=== PATIENT | male | born 1970 | race Caucasian/White ===

== ENCOUNTER 2017-05-18 17:32 | Emergency (ER) | payer OTHER ==
[2017-05-18 17:41] VITALS: BP 164/90; PULSE 96; BMI 27.3
--- NOTE | 2017-05-18 19:45 | PDOC ---
History of Present Illness - General Chief Complaint: Psychiatric Stated Complaint: CHEST PAIN Time Seen by Provider: 05/18/17 19:37 - History of Present Illness Initial Comments: 05/18/17 20:05 The patient is a 47 year old male with no significant PMH who presents for evaluation of anxiety. The patient reports anxious feelings over the past month and the sensation that he "gets in his own head." Today he states he experienced an episode of extreme anxiety and presented to an urgent care where he was evaluated and then discharged after calming down. He states that he then experienced another episode of extreme anxiety with a sensation of numbness and tingling in his extremities prompting his presentation to the ED for evaluation. He states that his symptoms have since resolved since presenting to the ED. He otherwise denies fevers, chills, SOB, chest pain, nausea, vomiting, abdominal pain, or changes with urination or bowel movements. Past History - Past Medical History Allergies/Adverse Reactions: Allergies Allergy/AdvReac Type Severity Reaction Status Date / Time No Known Allergies Allergy Verified 05/18/17 17:42 Home Medications: Ambulatory Orders Omeprazole 20 mg PO BID #28 tablet. 01/21/17 Cancer: Yes (Non-hodgkins lymphoma) COPD: No - Surgical History Abdominal Surgery: Yes - Suicide/Smoking/Psychosocial Hx Smoking History: Smoker current status UNK Hx Alcohol Use: Yes (socially) Drug/Substance Use Hx: No Substance Use Type: None Review of Systems - Review of Systems Comments:: 05/18/17 20:17 Constitutional: No fevers, chills, fatigue, malaise HEENT: No Rhinorrhea, nasal congestion, visual changes Cardiovascular: No chest pain, syncope, palpitations, lightheadedness Respiratory: No Cough, SOB, Hemoptysis, Gastrointestinal: No Abdominal pain, Nausea, Vomiting, Constipation, Diarrhea, Melena Genitourinary: No Dysuria, Frequency, Urgency, Hesitancy, Hematuria, Flank pain Musculoskeletal: No Myalgia, arthralgia Skin: No rashes, itching, bruising, pallor Neurologic: No Headache, Dizziness, Weakness Psychiatric: No Hallucinations. No SI or HI *Physical Exam - Vital Signs Last Vital Signs Temp Pulse Resp BP Pulse Ox 96 H 20 164/90 100 05/18/17 17:36 05/18/17 17:36 05/18/17 17:36 05/18/17 17:36 - Physical Exam Comments: 05/18/17 20:18 General Appearance: Nourished. No Apparent Distress HEENT: EOMI, WILEY. No Pharyngeal Erythema, Tonsillar Exudate, Tonsillar Erythema Neck: No Cervical Lymphadenopathy Respiratory/Chest: Lungs Clear, Normal Breath Sounds. No Crackles, Rales, Rhonchi, Wheezing Cardiovascular: Regular Rhythm, Regular Rate. No Murmur, Gallops, Rubs Gastrointestinal/Abdominal: Normal Bowel Sounds, Soft. No Guarding, Rebound, Tenderness Musculoskeletal: No CVA Tenderness Extremity: Normal Capillary Refill Integumentary: Normal Color, Dry, Warm Neurologic: slab puller II-XII NML intact, Fully Oriented, Alert, Normal Mood/Affect, Normal Response, Motor Strength 5/5. Heart Score/ECG Review #1 ECG reviewed & interpreted by me at: 20:18 General ECG Interpretation: Sinus Rhythm, Normal Rate, Normal Intervals, No acute ischemic changes Medical Decision Making - Medical Decision Making 05/18/17 20:18 The patient is a 47 year old male with no significant PMH who presents for evaluation of anxiety. Given the patient's history and normal physical exam on presentation, it is likely his symptoms were due to an anxiety attack. EKG performed in triage was unremarkable and normal. We will treat the patient with 1mg of ativan here in the ED and the patient reports that he has follow up with a therapist in the next few days. The patient appears clinically well on exam and we are comfortable discharging the patient home with primary care provider follow up and follow up with his therapist. We discussed the plan and return precautions with the patient who voiced understanding and is agreeable with the plan. *DC/Admit/Observation/Transfer Diagnosis at time of Disposition: Anxiety attack - Discharge Dispostion Disposition: HOME Condition at time of disposition: Good Admit: No - Referrals Referrals: Lauren Conway [Primary Care Provider] - - Patient Instructions Printed Discharge Instructions: DI for Anxiety -- Adult, DI for Panic Disorder Additional Instructions: Please return to the ER if you experience concerning or worsening symptoms including chest pain, fevers, or difficulty breathing. Your EKG was normal here in the ER. It is likely your symptoms are due to an anxiety attack. It is important that you follow up with your primary care provider within 1 week to discuss your ER visit and further management of your symptoms. Please keep your therapist appointment as well as this will be important in helping to manage your anxiety. - Post Discharge Activity
--- NOTE | 2017-05-18 19:57 | PDOC ---
Attending Attestation - Resident Resident Name: Pantera Livingston - ED Attending Attestation I have performed the following: I have examined & evaluated the patient, The case was reviewed & discussed with the resident, I agree w/resident's findings & plan, Exceptions are as noted - Physicial Exam PE: 05/18/17 19:59 Physical Exam General Appearance: Yes: Appropriately Dressed. No: Apparent Distress, Intoxicated HEENT: positive: EOMI, WILEY, Normal ENT Inspection, Normal Voice, TMs Normal, Pharynx Normal. negative: Pale Conjunctivae, Photophobia, Scleral Icterus (R), Scleral Icterus (L) Neck: positive: Trachea midline, Normal Thyroid, Supple. negative: Tender, Rigid, Carotid bruit, Stridor, Lymphadenopathy (R), Lymphadenopathy (L), Thyromegaly Respiratory/Chest: positive: Lungs Clear, Normal Breath Sounds. negative: Chest Tender, Respiratory Distress, Accessory Muscle Use, Labored Respiration, RES, Crackles, Rales, Rhonchi, Stridor, Wheezing, Dullness Cardiovascular: positive: Regular Rhythm, Regular Rate, S1, S2. negative: Edema , JVD, Murmur, Bradycardia, Tachycardia Vascular Pulses: Dorsalis-Pedis (R): 2+, Doralis-Pedis (L): 2+ Gastrointestinal/Abdominal: positive: Normal Bowel Sounds, Flat, Soft. negative : Tender, Organomegaly, Pulsatile Mass, Increased Bowel Sounds, Decreased BS, Distended, Guarding, Rebound, Hernia, Hepatomegaly, Spleenomegaly Lymphatic: negative: Adenopathy, Tenderness Musculoskeletal: positive: Normal Inspection. negative: CVA Tenderness, Decreased Range of Motion Extremity: positive: Normal Capillary Refill, Normal Inspection, Normal Range of Motion, Pelvis Stable. negative: Tender, Pedal Edema, Swelling, Erythema Integumentary: positive: Normal Color, Dry, Warm. negative: Cyanotic, Erythema , Jaundice, Rash Neurologic: positive: service captain II-XII NML intact, Fully Oriented, Alert, Normal Mood/ Affect, Motor Strength 5/5. negative: EOM Palsy, Facial Droop, Sensory Deficit - Medical Decision Making 05/18/17 20:03 Pt treated and released. Pt will be given ATivan 1mg. Current with his and has therapist appointment on Tuesday <Oswaldo Yi - Last Filed: 05/18/17 20:03> - HPI HPI: 05/18/17 20:18 The patient is a 47 year old male with no significant PMH who presents to the emergency department for evaluation of anxiety. The patient reports feeling very anxious today and was found to have an elevated BP at an Urgent Care. The patient reports being discharged and continuing to feel anxious with associated numbness and tingling in his extremities. The patient reports feeling much more comfortable at presentation and that his symptoms have resolved. He endorses some lightheadedness but denies chest pain or palpitations. He denies shortness of breath. Allergies: NKA PCP: Dr. Conway. <Victor Hugo Lama - Last Filed: 05/18/17 20:18>
[2017-05-18] MEDS ORDERED: LORazepam 1 MG TABLET PO ONE (20:00)
[2017-05-18] MEDS ORDERED: LORazepam 0.5 MG TABLET ONE (20:10)
--- NOTE | 2017-05-25 01:12 | EKG ---
Test Reason : Blood Pressure : / mmHG Vent. Rate : 070 BPM Atrial Rate : 070 BPM P-R Int : 140 ms QRS Dur : 094 ms QT Int : 404 ms P-R-T Axes : 045 020 019 degrees QTc Int : 436 ms NORMAL SINUS RHYTHM NORMAL ECG WHEN COMPARED WITH ECG OF 21-JAN-2017 13:43, NO SIGNIFICANT CHANGE WAS FOUND Confirmed by MARIE LIPSCOMB MD ([id number]) on 05/25/2017 1:11:49 AM Referred By: Confirmed By:MARIE LIPSCOMB MD
== END 2017-05-18 21:07 | disposition home or self-care (01) ==
LOC: JER 17:32
DX: F41.0 Panic disorder [episodic paroxysmal anxiety] (principal)
CPT/HCPCS: 93005; 93010; 99282-25